=== PATIENT | female | born 1975 | race Caucasian/White ===

== ENCOUNTER 2019-07-18 06:38 | Emergency (ER) | payer OTHER, SELFPAY ==
[2019-07-18 06:55] VITALS: BP 141/97; PULSE 94; RESP 20; TEMP 36.7; O2SAT 99
--- NOTE | 2019-07-18 07:07 | ED.FEMALEGU ---
HPI - Female Genitourinary General Chief complaint: Urogenital-Female Stated complaint: r flank Time Seen by Provider: 07/18/19 06:51 Source: patient Mode of arrival: ambulatory Limitations: no limitations History of Present Illness HPI Narrative: 44 yo female with h/o cervical cancer s/p hysterectomy, chemoradiation who presents with c/o right lower back pain since last Sunday. Patients states she has had urostomy tube for over 1 years due to complications of cancer treatment. She states she has a urostomy tube in place that gets changed every 13 weeks, and she is due to get it changed on Sunday. She reports mild right lower back pain that has been occurring intermittently since Sunday. She develop nausea and dry heaving yesterday. She also noticed that her urine appears cloudy today. She normally sees Dr. Godfrey at [place], but states she lives in [place] and she would get seen quicker in our ED so she came to [place]. She denies any fever or chills. She denies abdominal pain. MD elicited complaint: UTI Location of symptoms: flank (right lower back pain) Female Urogenital Radiation: Non-Radiating Severity scale (1-10): 3 Quality of pain: dull Consistency: intermittent Vaginal bleeding: none Urinary symptoms: Flank Pain Related Data Home Medications Medication Instructions Recorded Confirmed lamotrigine 07/18/19 losartan 07/18/19 Allergies Allergy/AdvReac Type Severity Reaction Status Date / Time sulfamethoxazole Allergy Severe RASH--NEW Verified 11/01/12 08:07 REACTION FROM RECENT RX trimethoprim Allergy Severe Verified 11/01/12 08:07 Review of Systems Review of Systems: All systems reviewed & are unremarkable except as noted in HPI and below Constitutional: Constitutional: Denies chills and Denies fatigue Cardiovascular: Cardiovascular: Denies chest pain Respiratory: Respiratory: Denies cough and Denies dyspnea Gastrointestinal: Gastrointestinal: Denies abdominal pain, Denies diarrhea, Reports nausea and Denies vomiting Genitourinary: Comments: cloudy urine Musculoskeletal: Musculoskeletal: Reports back pain Integumentary/Breasts: Skin/Breast: Denies breast pain, Denies breast mass and Denies rash Neurologic: Denies dizziness and Denies headache(s) [facility] Past Medical History Medical History Cervical cancer Surgical History Surgical History H/O: hysterectomy History of urostomy Exam Narrative: Exam Narrative: GENERAL: Well-appearing, well-nourished, and in no acute distress. HEAD: Normocephalic, atraumatic EYES: PERRLA and EOMI, conjunctiva clear without discharge THROAT:Mucous membranes moist, Oropharynx normal without erythema, exudate, peritonsillar swelling or fluctuance NECK: Supple, without lymphadenopathy or mass RESPIRATORY: No respiratory distress, Airway patent, Respirations non-labored, Clear to auscultation without rales, rhonchi or wheeze HEART: Regular rate and rhythm. No murmur heard. Normal peripheral pulses. ABDOMEN: Soft, nontender, nondistended, normal active bowel sounds. No masses. No rebound or guarding, No organomegaly. in left lower abdomen is colostomy ; right lower abdomen is urostomy with tube in place with cloudy urine in bag; no CVA tenderness EXTREMITIES: No edema, normal strength with full range of motion. SKIN: Warm, dry, normal color without rash NEURO: Alert and oriented x3. CN 2-12 grossly intact. No focal deficits. PSYCH: Normal mood and affect. Course Consultations Consultation #1: I discussed case with Willow of urology. She is coming down to see patient and change out urostomy tube. Date: 07/18/19 Time: 08:25 Consultation #2: Urologist came to see patient. We do not have supplies to change tube. Patient understands and she will follow up with her urologist on Sunday. Will prescrib
[2019-07-18] MEDS: ONDANSETRON HCL ODT 4 MG TABLET PO (07:38)
[2019-07-18 07:45] LABS: Basophils Percent Auto 0.5 % (0.2-1.2); Eosinophils Absolute Auto 0.1 K/mm3 (0-0.3); Immature Granulocyte Absolute 0.02 K/mm3 (0.00-0.031); Immature Granulocyte Percent A 0.3 % (0-0.5); Lymphocytes Absolute Auto 1.14 K/mm3 (0.9-3.2); Lymphocytes Percent Auto 14.3 % (18.3-44.2); Mean Corpuscular HGB Conc 32.4 g/dl (32-36); Mean Corpuscular Hemoglobin 29.4 pg (26-34); Mean Corpuscular Volume 90.7 fl (80-100); Monocytes Absolute Auto 0.8 K/mm3 (0.1-0.6); Monocytes Percent Auto 9.9 % (2.6-8.5); Neutrophils Absolute Auto 5.9 K/mm3 (1.3-6.7); Platelet Count Result 340 k/mm3 (150-375); Red Blood Count 4.08 M/mm3 (4.2-5.4); Red Cell Distribution Width 13.4 % (11.5-14.5)
[2019-07-18 07:52] LABS: Add Urine Microscopic? YES; Appearance Urine Turbid (Clear); Bacteria Urine 2+ /hpf; Bilirubin Urine Negative (Negative); Blood Urine 2+ (Negative); Color Urine Amber (Yellow); Glucose Urine UA Negative (Negative); Ketones Urine Trace mg/dL (Negative); Leukocyte Esterase Ur 3+ LEU/UL (Negative); Nitrate Urine Negative (Negative); Protein Urine 2+ mg/dL (Negative); RBC Urine >75 /hpf (0-2); Specific Grav Ur 1.014 (1.001-1.035); Urobilinogen Urine Negative mg/dL (<2.0); WBC Urine >75 /hpf
[2019-07-18 08:01] LABS: Alanine Aminotransferase 18 U/L (4-35); Albumin Level 4.6 g/dL (3.5-5.1); Alkaline Phosphatase 148 U/L (38-126); Aspartate Amino Transferase 23 U/L (14-36); Bilirubin,Total 0.6 mg/dL (0.2-1.3); Blood Urea Nitrogen 22 mg/dL (7-17); Calcium 9.9 mg/dL (8.4-10.2); Carbon Dioxide 23 mmol/L (22-30); Chloride 101 mmol/L (98-107); Estimated Glomerular Filt Rate 48; Glucose 100 mg/dL (65-105); Potassium 3.7 mmol/L (3.4-5.0); Sodium 137 mmol/L (137-145)
[2019-07-18 09:30] VITALS: BP 146/104; PULSE 87; RESP 18; O2SAT 100
--- NOTE | 2019-07-18 16:29 | WPDURCON ---
Assessment and Plan Assessment and plan (1) Urinary tract infection: Qualifiers: Encounter type: initial encounter Indwelling urinary catheter type: cystostomy catheter Urinary tract infection type: catheter-associated UTI Qualified Code(s): T83.510A - Infection and inflammatory reaction due to cystostomy catheter, initial encounter; N39.0 - Urinary tract infection, site not specified Code(s): N39.0 - Urinary tract infection, site not specified Status: Acute Assessment and Plan: Culture urine, send home with antibiotics to follow up Sunday as scheduled with her regular urologist at [place] for appropriate tube change. Urology Consult Note HPI Date Seen: 07/18/19 Primary Care Provider: Nathaniel Cruz MD Consult Narrative Narrative: Socorro Stevens is a 44 year old female who presented to our ER for cloudy malodorous urine that started two days ago. 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 She sees Dr. Godfrey at [place] who changes her conduit tube in interventional radiology which is scheduled for 07/21/19. While she was here she was wondering if we could change the tube to save her a trip. Unfortunately, this is not a procedure that we do here and we do not have the proper equipment. Therefore, I advised that they culture her urine and send her home on antibiotics to follow up with her regular urologist on Sunday for the tube change. The purpose of the tube is to keep the stoma from scarring down. Review of Systems Cardiovascular: Cardiovascular: Denies chest pain Respiratory: Respiratory: Reports no additional respiratory complaints Gastrointestinal: Gastrointestinal: Denies abdominal pain, Denies nausea and Denies vomiting Genitourinary: Genitourinary: Denies hematuria and Denies dysuria [facility] Past Medical History Medical History Cervical cancer Surgical History Surgical History H/O: hysterectomy History of urostomy Meds Home Medications and Allergies Home Medications Medication Instructions Recorded Confirmed Type cephalexin [Keflex] 500 mg PO Q6H #40 cap 07/18/19 Rx lamotrigine 07/18/19 History losartan 01/31/20 History Allergies Allergy/AdvReac Type Severity Reaction Status Date / Time sulfamethoxazole Allergy Severe RASH--NEW Verified 11/01/12 08:07 REACTION FROM RECENT RX trimethoprim Allergy Severe Verified 11/01/12 08:07 Vital Signs Vital Signs - 24 hr 07/18/19 06:55 07/18/19 09:30 Temperature 98.0 F Pulse Rate 94 87 Respiratory Rate 20 18 Blood Pressure 141/97 H 146/104 H Pulse Oximetry 99 100 Exam Resp: Effort & Inspection: normal respiratory effort Cardio: Rate: regular rate GI: GI Palp: No Tenderness to palpation present (GI) (urostomy bag present with a small IV canula tubing protruding from stoma) Urinary Catheter: Urinary Catheter: patent and draining, urine cloudy and urine dark Results Labs CBC & Chem 7: 07/18/19 07:35 07/18/19 07:35 Labs: Short CBC 07/18/19 Range/Units 07:35 WBC 8.0 (4.5-10.0) K/mm3 Hgb 12.0 (12.0-15.0) g/dL Hct 37.0 (37.0-47.0) % Plt Count 340 (150-375) k/mm3 BMP 07/18/19 07:35 Sodium 137 Potassium 3.7 Chloride 101 Carbon Dioxide 23 BUN 22 H Creatinine 1.20 H Glucose 100 Calcium 9.9 Liver Function 07/18/19 Range/Units 07:35 Total Bilirubin 0.6 (0.2-1.3) mg/dL AST 23 (14-36) U/L ALT 18 (4-35) U/L Alkaline Phosphatase 148 H (38-126) U/L Albumin 4.6 (3.5-5.1) g/dL Urine 07/18/19 Range/Units 07:35 Urine Color Narda (Yellow) Urine Appearance Turbid H (Clear) Urine pH 6.0 (5.0-9.0) Ur Specific [place] 1.014 (1.001-1.035) Urine Protein 2+ H
== END 2019-07-18 09:29 | disposition home or self-care (01) ==
PROVIDERS: Emergency Provider General Practice; PCP Emergency Medicine
DX: T83.510A Infection and inflammatory reaction due to cystostomy catheter, initial encounter (principal); Z85.41 Personal history of malignant neoplasm of cervix uteri; Z93.3 Colostomy status; Z92.3 Personal history of irradiation
CPT/HCPCS: 36415; 80053; 81001; 85025; 87086; 87088; 99283; A9270